=== PATIENT | female | born 1990 | race African-American/Black ===

== ENCOUNTER 2019-05-24 13:25 | Emergency (ER) | payer SELFPAY ==
[~2019-05-24] VITALS: Ht 162.6 cm; Wt 67.6 kg
[2019-05-24 13:51] VITALS: BP 111/62
--- NOTE | 2019-05-24 14:00 | NUR ---
Triage completed, ambulated with steady gait to ER waiting room.
--- NOTE | 2019-05-24 14:39 | NUR ---
Patient ambulated to bed 5 with family. RN evaluating patient at bedside.
[2019-05-24 14:41] VITALS: BP 111/62
--- NOTE | 2019-05-24 14:41 | NUR ---
CAME IN WITH C/O SWELLING, PAIN ON HER RT BUTTOCK STARTED YESTERDAY, POSSIBLE BUGBITE
--- NOTE | 2019-05-24 15:32 | NUR ---
Patient did not want to wait for discharge instructions. Pt states "If I don't get my prescriptions now I'm going to leave this is taking too long." Dr. Orozco made aware. Pt asked to wait in ER lobby for discharge paperwork.
--- NOTE | 2019-05-24 15:38 | NUR ---
Went out to lobby to give patient her discharge instructions and patient was no longer in ER lobby. Pt left facility without discharge instructions. Dr. Orozco made aware.
== END 2019-05-24 15:38 | disposition home or self-care (01) ==
LOC: MED 13:25
DX: O26.892 Other specified pregnancy related conditions, second trimester (principal); K61.1 Rectal abscess; Z3A.19 19 weeks gestation of pregnancy
CPT/HCPCS: 99283